=== PATIENT | female | born 1965 ===

== ENCOUNTER 2021-05-31 07:45 | Inpatient (IN) | payer OTHER ==
[~2021-05-31] VITALS: Ht 157.5 cm; Wt 97.5 kg
[2021-05-31] MEDS ORDERED: ALLEGR PO (16:22)
[2021-05-31] MEDS ORDERED: AVAPRO75 MG PO (16:22)
[2021-05-31] MEDS ORDERED: LIPIT PO (16:22)
[2021-05-31] MEDS ORDERED: WELLBUTRIN XL150 M1 PO (16:23)
[2021-05-31] MEDS ORDERED: FLONASE IH (16:23)
[2021-05-31] MEDS ORDERED: ZOLOFT50 MG PO (16:24)
[2021-05-31] MEDS ORDERED: TRANXENE T-TAB7.5 MG PO (16:24)
[2021-06-02] MEDS ORDERED: FEXOFENADINE H180 MG (11:21)
[2021-06-02] MEDS ORDERED: AZELASTIN-FLUTI23 GM (11:21)
[2021-06-02] MEDS ORDERED: ATORVASTATIN CA10 MG (11:21)
[2021-06-02] MEDS ORDERED: HYDROCHLOROTH12.5 MG (11:21)
[2021-06-02] MEDS ORDERED: METFORMIN HCL500 M4 (11:22)
[2021-06-02] MEDS ORDERED: PANTOPRAZOLE SO40 MG (11:22)
[2021-06-02] MEDS ORDERED: DICLOFENAC POTA50 MG (11:22)
[2021-06-02] MEDS ORDERED: NORFLEX100MG (11:22)
[2021-06-02] MEDS ORDERED: FLONASE16 GM (11:23)
== END 2021-06-03 20:44 | disposition home or self-care (01) | DRG 743 ==
LOC: OB/GYN 06-02 07:45 → O/R 06-02 11:06 → OB/GYN 06-02 11:06
PROVIDERS: ADMIT Specialist; ATTEND Specialist
PROC: 0UT24ZZ Resection of Bilateral Ovaries, Percutaneous Endoscopic Approach (ICD-10-PCS; 2021-06-02)
PROC: 0DNW4ZZ Release Peritoneum, Percutaneous Endoscopic Approach (ICD-10-PCS; 2021-06-02)
PROC: 0TN74ZZ Release Left Ureter, Percutaneous Endoscopic Approach (ICD-10-PCS; 2021-06-02)
PROC: 0TN64ZZ Release Right Ureter, Percutaneous Endoscopic Approach (ICD-10-PCS; 2021-06-02)
PROC: 0UB14ZZ Excision of Left Ovary, Percutaneous Endoscopic Approach (ICD-10-PCS; 2021-06-02)
PROC: 0UT74ZZ Resection of Bilateral Fallopian Tubes, Percutaneous Endoscopic Approach (ICD-10-PCS; principal; 2021-06-02 10:45)
DX: D27.1 Benign neoplasm of left ovary (principal); Z20.822 Contact with and (suspected) exposure to COVID-19